=== PATIENT | female | born 1945 | race Caucasian/White ===

== ENCOUNTER 2018-01-07 09:30 | Outpatient (CLI) | payer MEDICARE | END 2018-01-07 09:31 | disposition home or self-care (01) | LOC: BICULT 09:30 | PROVIDERS: ATTEND Internal Medicine Gastroenterology | DX: K74.60 Unspecified cirrhosis of liver (principal); Z90.49 Acquired absence of other specified parts of digestive tract | CPT/HCPCS: 36415; 76705; 80053; 82105 ==

== ENCOUNTER 2018-02-20 12:07 | Emergency (ER) | payer MEDICARE ==
[2018-02-20 12:37] LABS: #Basophils 0.1 thou/uL (0.0-0.2); #Eosinphils 0.4 thou/uL (0.0-0.7); #Monocytes 0.6 thou/uL (0.11-0.59); #Neutrophils 4.8 thou/uL (1.40-6.50); %Basophils 0.9 % (0.0-1.0); %Eosinophils 5.6 % (0.0-10.0); %Lymphocytes 25.5 % (21.0-51.0); %Monocytes 7.2 % (0.0-10.0); %Neutrophils 60.8 % (42.0-75.0); Hemoglobin 13.4 g/dL (12.0-16.0); Mean Corpuscular Hemoglobin 29.2 pg (27.0-31.0); Mean Corpuscular Volume 88.5 fl (81.0-99.0); Mean Platelet Volume 8.3 fL (7.4-10.4); Platelet Count 172 thou/uL (130-400); RBC Distribution Width 12.2 % (11.5-14.5); White Blood Cell (WBC) Count 7.9 thou/uL (4.8-10.8)
[2018-02-20 12:47] LABS: INR-International Normal Ratio 1.1; PTT 30.7 SEC (22.9-36.1); Prothrombin Time 13.8 SEC (12.0-14.7)
[2018-02-20 12:58] LABS: Anion Gap 10 mmol/L (10-20); BUN (Urea Nitrogen) 12 mg/dL (9.8-20.1); Calc. Creatinine Clearance 0 mL/min (70-130); Carbon Dioxide 28 mmol/L (23-31); Chloride 102 mmol/L (98-107); Estimated GFR-MDRD 67; Sodium 136 mmol/L (136-145)
[2018-02-20 12:59] LABS: ALT (SGPT) 38 U/L (8-55); AST (SGOT) 36 U/L (5-34); Albumin 3.8 g/dL (3.4-4.8); Alkaline Phosphatase 110 U/L (40-150); Bilirubin, Total 0.4 mg/dL (0.2-1.2); CK (CPK) 79 U/L (29-168); Calcium 9.2 mg/dL (7.8-10.44); Glucose 266 mg/dL (83-110); Protein, Total 6.8 g/dL (6.0-8.3)
--- NOTE | 2018-02-20 13:02 | RAD ---
CHEST PA AND LATERAL: Date: 02/20/18 HISTORY: 73-year-old female with history of chest pain. FINDINGS: Heart size is within normal limits. Mild increased markings bilaterally and blunting of the costophre krupa angles, slightly worse on the left side, possibly representing minimal pleural effusion. Surgical clips in the right axilla and chest wall. On the lateral view only, there is a small nodular density seen overlying the heart. This could conceivably represent a small pulmonary nodule. No evidence for confluent pneumonia. IMPRESSION: Slight blunting in the costophrenic angles, worse on the left side, possibly small pleural effusion. No significant cardiomegaly or confluent pneumonia or acute edema. Small nodular density seen only on the lateral view overlying the heart, possibly representing a pulmonary nodule. Consider follow-up c hest CT scan for further assessment. POS: STACY
[2018-02-20 13:14] LABS: CKMB 1.3 ng/mL (0-6.6); Troponin I Less than 0.010 ng/mL (< 0.028)
--- NOTE | 2018-02-20 15:27 | CT ---
CT CHEST WITH IV CONTRAST CT ABDOMEN AND PELVIS WITH IV CONTRAST CT THORACIC SPINE NONCONTRAST CT LUMBAR SPINE NONCONTRAST: Date: 02/20/18 HISTORY: Fall. Chest injury. Abdomen injury. Back injury. FINDINGS: Scattered areas of mild scarring are present within the lung parenchyma. No evidence of pneumothorax, pleural fluid, or mediastinal hematoma. Gallbladder is surgically absent. Cysts arise from the kidneys. There is calcification throughout the arterial structures. No free fluid within the abdomen. Fat protrudes through an umbilical hernia nigel t does not contain bowel. Urinary bladder is unremarkable. Diverticula arise from the colon without a djacent inflammation. Degenerative changes are present throughout the thoracolumbar spine. Mild chronic appearing wedging o f several thoracic vertebral bodies is noted. No acute fracture or dislocation are visible. IMPRESSION: No acute traumatic injury is demonstrated. Incidental type findings are as detailed above. POS: STACY
[2018-02-20] MEDS ORDERED: Morphine 4 MG/ML VIAL ONE (15:46)
== END 2018-02-20 17:18 | disposition home or self-care (01) ==
LOC: ERS 12:07
DX: S29.011A Strain of muscle and tendon of front wall of thorax, initial encounter (principal); F41.9 Anxiety disorder, unspecified; F32.9 Major depressive disorder, single episode, unspecified; E11.9 Type 2 diabetes mellitus without complications; I10 Essential (primary) hypertension; Z79.899 Other long term (current) drug therapy; Z79.82 Long term (current) use of aspirin; W01.0XXA Fall on same level from slipping, tripping and stumbling without subsequent striking against object, initial encounter
CPT/HCPCS: 36415; 71046; 71260; 74177; 80053; 82550; 82553; 84484; 85025; 85610; 85730; 93005; 94760; 96374; J2270

== ENCOUNTER 2018-04-20 08:59 | Outpatient (CLI) | payer MEDICARE ==
--- NOTE | 2018-04-20 13:14 | CT ---
CT OF CHEST PERFORMED WITHOUT CONTRAST ENHANCEMENT: HISTORY: The patient has had a history of chest pain. A previous chest x-ray showed possible small left pleur al effusion and some blunting to both costophrenic angles. COMPARISON: CT of chest done 02/20/18 and chest x-ray done the same day. FINDINGS: The lungs are clear of any infiltrative process. No pulmonary nodules or effusions. The bibasilar l marie changes noted on the previous study have essentially completely resolved. There is no significant mediastinal or any obvious hilar adenopathy appreciated on this noncontrast s tudy. No consistent axillary adenopathy. There is some coronary calcification seen. The visualized liver parenchyma shows no focal findings. A parapelvic cyst involving the left kidney is incidentally noted. IMPRESSION: Almost complete resolution of the bibasilar interstitial lung changes. POS: BELEMH
== END 2018-04-20 09:00 | disposition home or self-care (01) ==
LOC: SCSCT 08:59
PROVIDERS: ATTEND Family Medicine
DX: R93.8 Abnormal findings on diagnostic imaging of other specified body structures (principal); J98.4 Other disorders of lung
CPT/HCPCS: 71250

== ENCOUNTER 2019-03-23 10:04 | Outpatient (CLI) | payer MEDICARE ==
--- NOTE | 2019-03-23 10:57 | ULT ---
Abdominal Ultrasound: Multiple grayscale images of right upper quadrant obtained according to protocol. INDICATION: Cirrhosis. Right upper quadrant pain. FINDINGS: Liver: Nodular morphology of the liver, with increased echogenicity. Intrahepatic biliary ductal prom inence is seen Gallbladder: Surgically absent Gallbladder wall: Not applicable. Prince's Sign: Negative Common bile duct is 1.4 cm, which likely represents reservoir effect given absence of gallbladder Ascites: None Spleen: Unremarkable. Pancreas: Obscured from view by bowel content limiting assessment Kidneys: Left renal cyst, 2.3 cm, is present. No hydronephrosis of either kidney Aorta/IVC: No acute process. IMPRESSION: Cirrhotic morphology of liver Left renal cyst Status post cholecystectomy with biliary ductal prominence, likely reservoir effect. This may be conf irmed by obtaining biliary laboratory values, as clinically indicated.
== END 2019-03-23 10:05 | disposition home or self-care (01) ==
LOC: BICULT 10:04
PROVIDERS: ATTEND Internal Medicine Gastroenterology
DX: K74.60 Unspecified cirrhosis of liver (principal); N28.1 Cyst of kidney, acquired; Z98.890 Other specified postprocedural states
CPT/HCPCS: 76700

== ENCOUNTER 2019-10-12 07:54 | Outpatient (CLI) | payer MEDICARE ==
--- NOTE | 2019-10-12 08:52 | ULT ---
Sonogram liver with duplex evaluation HISTORY: Cirrhosis. Chronic liver disease. FINDINGS: The gallbladder is surgically absent. Common duct is 0.8 cm. Liver is heterogeneous with a nodular contour. No focal mass or intrahepatic biliary dilatation. No free fluid. Spleen measures up to 11.4 cm. Good color and spectral Doppler flow within the hepatic and splenic arteries. Portal venous flow is t owards the liver. Hepatic venous flow is towards the IVC. IMPRESSION: Status post cholecystectomy. No evidence of biliary obstruction. Mildly cirrhotic appearance of the liver without findings of portal venous hypertension.
== END 2019-10-12 07:55 | disposition home or self-care (01) ==
LOC: BICULT 07:54
PROVIDERS: ATTEND Physician Assistant Medical
DX: K74.60 Unspecified cirrhosis of liver (principal); E55.9 Vitamin D deficiency, unspecified; Z90.49 Acquired absence of other specified parts of digestive tract
CPT/HCPCS: 76705

== ENCOUNTER 2019-10-24 03:57 | Inpatient (IN) | payer MEDICARE ==
[2019-10-24] MEDS ORDERED: Ondansetron PF 4 MG/2 ML Vial ONE (04:19)
[2019-10-24] MEDS ORDERED: Dicyclomine 20 MG TAB ONE (04:19)
[2019-10-24 04:27] LABS: Hemoglobin 16.1 g/dL (12.0-16.0); Mean Corpuscular HGB CONC 33.1 g/dL (32.0-36.0); Mean Corpuscular Hemoglobin 29.4 pg (27.0-31.0); Mean Corpuscular Volume 88.7 fL (78.0-98.0); Mean Platelet Volume 9.4 fL (7.4-10.4); Platelet Count 199 thou/uL (130-400); RBC Distribution Width 11.8 % (11.5-14.5); Red Blood Cell (RBC) Count 5.48 mill/uL (4.20-5.40); White Blood Cell (WBC) Count 23.5 thou/uL (4.8-10.8)
[2019-10-24 04:41] LABS: ALT (SGPT) 41 U/L (8-55); AST (SGOT) 43 U/L (5-34); Albumin 4.4 g/dL (3.4-4.8); Alkaline Phosphatase 132 U/L (40-110); Anion Gap 16 mmol/L (10-20); BUN (Urea Nitrogen) 14 mg/dL (9.8-20.1); Bilirubin, Total 0.4 mg/dL (0.2-1.2); Calc. Creatinine Clearance 0 mL/min (70-130); Calcium 9.9 mg/dL (7.8-10.44); Carbon Dioxide 23 mmol/L (23-31); Chloride 102 mmol/L (98-107); Estimated GFR-MDRD 60; Globulin 3.5 g/dL (2.4-3.5); Glucose 178 mg/dL (83-110); Lipase 24 U/L (8-78); Potassium 4.3 mmol/L (3.5-5.1); Protein, Total 7.9 g/dL (6.0-8.3); Sodium 137 mmol/L (136-145)
[2019-10-24 04:58] LABS: Band 15 % (5-11); Eosinophils 2 % (0-10); Lymphocytes 9 % (21-51); MDiff Complete? YES; Monocytes 7 % (0-10); Neutrophil 67 % (42-75); Platelet Morphology Comment Appears Adequate
[2019-10-24] MEDS ORDERED: metroNIDAZOLE 500 MG/100 ML BAG ONE (05:14)
[2019-10-24 06:14] LABS: Bilirubin Negative (Negative); Blood, Urine Negative (Negative); Clarity Clear (Clear); Glucose, Urine (Dipstick) Greater than 1000 mg/dL (Negative); Leukocyte Negative Leu/uL (Negative); Nitrite Negative (Negative); Protein, Urine (Dipstick) Negative (Neg-Trace); Urobilinogen Normal mg/dL (Less than 2)
[2019-10-24] MEDS ORDERED: Dicyclomine 10 MG CAP PO PRN (06:59)
[2019-10-24] MEDS ORDERED: Ondansetron ODT 4 MG TAB PO PRN (07:00)
[2019-10-24] MEDS ORDERED: Ondansetron PF 4 MG/2 ML Vial IVP PRN ×2 (07:00→10:44)
[2019-10-24] MEDS ORDERED: Acetaminophen 325 MG TAB PO PRN (07:01)
[2019-10-24 07:13] VITALS: BMI 29.5
[2019-10-24] MEDS ORDERED: metroNIDAZOLE 500 MG in Premix Bag 1 BAG IVPB SCH (09:00)
--- NOTE | 2019-10-24 09:52 | CT ---
PRELIMINARY REPORT/[facility]/EMERGENCY AFTER HOURS PROCEDURE: EXAM: CT Abdomen and Pelvis with Intravenous Contrast CLINICAL HISTORY: Patient presents for evaluation of abdominal pain, Patient presents for evaluation of Patient reporti ng lower abdominal pain with intermittent watery diarrhea for one month. Has seen pcm twice with no d iagonosis. Diarrhea and abd pain worsened last night and has had one episode of vomiting and 3 episod es of large watery diarrhea since then. TECHNIQUE: Axial computed tomography images of the abdomen and pelvis with intravenous contrast. CONTRAST: With; ISOVUE 370,100mL COMPARISON: None provided. FINDINGS: LUNG BASES: No basilar airspace consolidation or pleural effusion. LIVER: Unremarkable. GALLBLADDER AND BILE DUCTS: Gallbladder surgically absent. PANCREAS: Unremarkable. SPLEEN: Unremarkable. ADRENAL GLANDS: Unremarkable. KIDNEYS, URETERS, AND BLADDER: Unremarkable. No hydronephrosis or nephrolithiasis. No ureteral or kris dder calculi. Simple appearing cyst involving the left kidney measuring 2.2 x 2.8 cm. STOMACH AND BOWEL: No obstruction. No wall thickening. No CT evidence acute diverticulitis. Changes of colonic diverticulosis is seen. Mild colitis suspected. APPENDIX: Appendix not visualized. PERITONEUM: No free fluid. No free air. LYMPH NODES: No lymphadenopathy. REPRODUCTIVE: Unremarkable as visualized. VASCULATURE: No aortic aneurysm. BONES: No fracture or suspicious osseous abnormality. Degenerative changes of the lumbar spine is se en. ABDOMINAL WALL AND SOFT TISSUES: Unremarkable. IMPRESSION: Mild colitis. ELECTRONICALLY SIGNED BY: Santos Boyd MD Oct 24, 2019 5:45:41 AM THREAD LASTER This report is intended for review by the ordering physician only, in accordance of law. If you recei ve this report in error, please call [facility] at [phone]. FINAL REPORT EMERGENCY AFTER HOURS CT ABDOMEN AND PELVIS WITH CONTRAST: FINDINGS/IMPRESSION: I agree with the findings and impression given in the preliminary report per [facility] physici an. 1. There is scattered diverticula in the colon. There are questionable stranding changes surrounding some of the diverticula in the pelvis. 2. Left renal cysts.
[2019-10-24] MEDS ORDERED: Dextrose 5% in Water 1,000 ML IV PRN (10:44)
[2019-10-24] MEDS ORDERED: Dextrose 50% Abboject 50 ML SYRINGE SLOW IVP PRN (10:44)
[2019-10-24] MEDS ORDERED: Guaifenesin DM 100-10/5 ML UDCUP PO PRN (10:44)
[2019-10-24] MEDS ORDERED: HumaLOG 300 UNITS/3 ML VIAL SC PRN (10:44)
[2019-10-24] MEDS: Sodium Chloride 0.9% 1,000 ML IV SCH ×2 (12:20→20:48)
--- NOTE | 2019-10-24 12:21 | HP ---
REASON FOR ADMISSION: Colitis, sepsis. HISTORY OF PRESENTING ILLNESS: The patient gives history of having abdominal pain from September 23. This is off and on, colicky pain. This is generalized. Sometimes she gets it on the left side, sometimes on the right side. Sometimes this pain stays in the center. She has also felt nauseous with this abdominal pain. Yesterday, the patient also had 3 episodes of diarrhea. No fever at home. She in fact saw Dr. Rodriguez, her professional organizer on the and had some changes in her diabetic medications. She failed to mention her abdominal pain to Michael likely. Has no complaints of chest pain, palpitation, PND, or orthopnea. She ambulates by herself. PAST MEDICAL AND SURGICAL HISTORY: History of cirrhosis due to nonalcoholic steatohepatitis, history of breast cancer, bilateral with mastectomies; carpal tunnel syndrome with surgery; melanoma removal; hypertension; diabetes mellitus, type 2; left knee replacement; hysterectomy; cataract and bilateral carpal tunnel surgery. CURRENT MEDICATIONS: The patient is on; 1. Jardiance 10 mg daily. 2. Gabapentin 600 mg q.a.m. and 900 mg p.o. q.p.m. 3. Atorvastatin 5 mg p.o. daily. The patient states she cannot tolerate higher dose. 4. Norvasc 5 mg p.o. daily. 5. Pepcid 40 mg p.o. q.p.m. 6. Aspirin 81 mg p.o. daily. ALLERGIES: ALLERGIC TO ERYTHROMYCIN, ZOLPIDEM. PERSONAL HISTORY: Does not abuse alcohol or drugs. No history of smoking. FAMILY HISTORY: Mother at the age of 92 years from natural causes. Father at the age of 49. She had alcoholic cirrhosis and complications. REVIEW OF SYSTEMS: CONSTITUTIONAL: Negative for weight loss or gain, ability to conduct usual activities. SKIN: Negative for rash, itching. EYES: Negative for double vision, pain. ENT/MOUTH: Negative for nose bleeding, neck stiffness, pain, tenderness. CARDIOVASCULAR: Negative for palpitations, dyspnea on exertion, orthopnea. RESPIRATORY: Negative for shortness of breath, wheezing, cough, hemoptysis, fever or night sweats. GASTROINTESTINAL: Negative for poor appetite, abdominal pain, heartburn, nausea, vomiting, constipation, or diarrhea. GENITOURINARY: Negative for urgency, frequency, dysuria, nocturia. MUSCULOSKELETAL: Negative for pain, swelling. NEUROLOGIC/PSYCHIATRIC: Negative for anxiety, depression. ALLERGY/IMMUNOLOGIC: Negative for skin rash, bleeding tendency. CODE STATUS: Code status is full. Power of energy attorney is her . PHYSICAL EXAMINATION: GENERAL: The patient is a 74-year-old female who is currently not in any acute distress. VITAL SIGNS: Blood pressure 140/60, pulse 78 per minute, respiratory rate 16 per minute, temperature 98.9 degrees Fahrenheit, saturating 95% on room air. NECK: Supple. No elevated JVD. HEENT: Eyes; extraocular muscles are intact. Pupils reacting to light. Oral cavity, mucous membranes are moist. No exudates or congestion. CARDIOVASCULAR SYSTEM: S1 and S2 heard, regular rhythm. RESPIRATORY SYSTEM: Air entry 1+ bilateral. No rales or rhonchi. ABDOMEN: Soft, bowel sounds heard. No tenderness, rigidity, or guarding. EXTREMITIES: No peripheral edema or calf tenderness. VASCULAR SYSTEM: Peripheral pulses 1+ bilateral. No ischemic ulcerations or gangrene. CENTRAL NERVOUS SYSTEM: No gross focal deficits noted. The patient is alert, awake, oriented well. PSYCHIATRIC SYSTEM: The patient's mood is euthymic. No hallucinations or delusions. LABORATORY DATA: There is suspicion for colitis. She has diverticulosis with no evidence of diverticulitis at present. This is on the CT abdomen and pelvis with IV contrast done. White count of 23, H and H of 16 and 48, platelet count 199, BUN 14, creatinine 0.9, serum glucose 178, AST 43, ALT 41, alkaline phosphatase 132, albumin is 4.4. Her EKG done shows normal sinus rhythm at 92 beats per minute. There is Q-wave seen in V1, V2. CLINICAL IMPRESSION AND PLAN: The patient will be admitted to medical floor for abdominal pain from last 30 days with nausea, vomiting, and diarrhea. We will obtain stool cultures. She will be empirically placed on Cipro and Flagyl. We will also obtain stool for Cyclospora, ova and cyst as well. The patient's abdominal pain is almost 30 days duration. Her last colonoscopy was somewhere around 2014. She has had some polyps removed, which came back positive for tubular adenoma. She sees Dr. Rodriguez in the outpatient setting for Gastroenterology. We will consult Dr. Luigi Yung who is on-call for Gastroenterology. Normal saline at 100 mL per hour, Protonix 40 mg daily. We will continue aspirin, Lipitor, Norvasc, and Neurontin as before. Job ID: [id number]
[2019-10-24] MEDS ORDERED: Iopamidol 370 76% 100 ML VIAL ONE (12:26)
[2019-10-24] MEDS: HumaLOG 300 UNITS/3 ML VIAL SC PRN ×2 (12:56→17:02)
[2019-10-24] MEDS: Acetaminophen 325 MG TAB PO PRN ×2 (12:56→20:50)
[2019-10-24] MEDS: metroNIDAZOLE 500 MG in Premix Bag 1 BAG IVPB SCH ×2 (13:39→20:54)
[2019-10-24] MEDS: Atorvastatin Calcium 10 MG TAB PO SCH (20:49)
[2019-10-24] MEDS: Aspirin 81 mg Enteric Coated Tablet PO SCH (20:49)
[2019-10-24] MEDS: Amlodipine 5 MG TAB PO SCH (20:49)
[2019-10-24] MEDS: Gabapentin 300 MG CAP PO SCH (20:50)
--- NOTE | 2019-10-25 01:20 | CON ---
DATE OF CONSULTATION: 10/24/2019 CHIEF COMPLAINT: "I feel weak and fatigued." HISTORY OF PRESENT ILLNESS: Ms. More is a 74-year-old woman with a history of cirrhosis secondary to fatty liver disease and is followed by Dr. Rodriguez as an outpatient, who complains of a 1-month history of severe fatigue and weakness. She has had some vague abdominal pain to go along with this with aching in the epigastric region to sometimes the left lower, sometimes right lower, and sometimes right upper quadrant. She does get some abdominal pain on most days that lasts for minutes to hours. She states that over this last month, she has had three episodes of diarrhea that went on for a day or two at a time. Last night, she developed an episode of nausea, vomiting, and diarrhea. She has not had persistent nausea and vomiting prior to this. Today, she has had no nausea or vomiting, is asking for solid food. She has felt weak and states that her blood sugars have been running high compared to previous levels. She feels bad in general. PAST MEDICAL HISTORY: Cirrhosis, hypertension, and diabetes mellitus. PAST SURGICAL HISTORY: Bilateral mastectomy for breast cancer. She has had a melanoma resection, carpal tunnel release, left knee replacement, and hysterectomy. FAMILY HISTORY: Negative for GI malignancy or liver disease. SOCIAL HISTORY: No alcohol, tobacco, or drugs. ALLERGIES: ERYTHROMYCIN, AMBIEN, AND POSSIBLY MACROLIDES. MEDICATIONS: Prior to admission; 1. Aspirin. 2. Amlodipine. 3. Caltrate. 4. Carbidopa and levodopa. 5. Famotidine. 6. Gabapentin. 7. Glimepiride. The glimepiride was actually changed to Jardiance a couple of weeks ago. REVIEW OF SYSTEMS: Negative x10 systems reviewed, except as stated in the history of present illness. PHYSICAL EXAMINATION: VITAL SIGNS: Temperature 98.5, pulse 62, and blood pressure 125/72. GENERAL: She is in no acute distress. Alert and oriented x3. HEENT: Eyes have no scleral icterus. Oropharynx is clear without lesions. No cervical or supraclavicular lymphadenopathy. No asterixis. LUNGS: Clear to auscultation bilaterally. HEART: Regular rate and rhythm without murmur. ABDOMEN: Soft. Really, she is nontender now. There is no guarding. Bowel sounds are present. EXTREMITIES: No lower extremity edema. LABORATORY DATA: White blood cell count 23.5, hemoglobin 16.1, and platelets 199. Bilirubin 0.4, AST 43, ALT 41, alk phos 132, albumin 4.4, creatinine 0.92, and lipase 24. Her hemoglobin was 14.9 back in August. She had an alpha fetoprotein that was normal in August. Hemoglobin A1c was elevated at 9.2 in August. IMPRESSION: 1. Diarrhea, nausea, and vomiting. This really was more of an acute episode last night and is now resolved. She did have a couple of episodes of diarrhea over the last month, but this has not really been a chronic or persistent problem. Nausea and vomiting have not been an issue prior to the last night either. 2. Dehydration. She presented with hemoconcentration with an elevated hemoglobin. 3. Abnormal CT scan showing possible stranding around the segment of the sigmoid colon and an area of diverticulosis. She had EGD and colonoscopy most recently in February of 2017. She had a small adenoma removed from the ascending colon. The upper endoscopy was unremarkable. 4. Generalized weakness and fatigue. Really this seems to be the primary complaint. Her blood sugar has been running high recently, which could be related to that. Her hemoglobin A1c was elevated back in August and her diabetes medicines were changed in mid September. 5. Epigastric pain. She has had some more focal epigastric pain today. We will cover her with a proton pump inhibitor. 6. Cirrhosis of the liver, likely secondary to fatty liver disease. Her liver function has been well compensated up to this point. RECOMMENDATIONS: 1. IV fluids. 2. I think it is reasonable to give a course of ciprofloxacin and metronidazole with a high white count and generalized abdominal pain and possible inflammatory changes around diverticular segment in the sigmoid colon. 3. Proton pump inhibitor. 4. If the diarrhea starts back again, then obtain stool studies. Job ID: [id number]
[2019-10-25 05:48] LABS: #Eosinphils 0.4 thou/uL (0.0-0.7); #Lymphocytes 2.1 thou/uL (1.20-3.40); #Monocytes 0.7 thou/uL (0.11-0.59); #Neutrophils 3.8 thou/uL (1.40-6.50); %Basophils 0.6 % (0.0-1.0); %Eosinophils 5.4 % (0.0-10.0); %Lymphocytes 30.1 % (21.0-51.0); %Monocytes 9.9 % (0.0-10.0); Hemoglobin 13.1 g/dL (12.0-16.0); Mean Corpuscular HGB CONC 32.2 g/dL (32.0-36.0); Mean Corpuscular Hemoglobin 29.2 pg (27.0-31.0); Mean Corpuscular Volume 90.6 fL (78.0-98.0); Mean Platelet Volume 9.7 fL (7.4-10.4); Platelet Count 155 thou/uL (130-400); Red Blood Cell (RBC) Count 4.48 mill/uL (4.20-5.40); White Blood Cell (WBC) Count 7.1 thou/uL (4.8-10.8)
[2019-10-25] MEDS: metroNIDAZOLE 500 MG in Premix Bag 1 BAG IVPB SCH ×3 (05:48→21:02)
[2019-10-25] MEDS: Sodium Chloride 0.9% 1,000 ML IV SCH (05:48)
[2019-10-25 06:24] LABS: Anion Gap 12 mmol/L (10-20); BUN (Urea Nitrogen) 10 mg/dL (9.8-20.1); Calc. Creatinine Clearance 83 mL/min (70-130); Calcium 8.4 mg/dL (7.8-10.44); Carbon Dioxide 23 mmol/L (23-31); Chloride 108 mmol/L (98-107); Estimated GFR-MDRD 79; Glucose 138 mg/dL (83-110); Sodium 139 mmol/L (136-145)
[2019-10-25] MEDS: Gabapentin 300 MG CAP PO SCH ×2 (08:30→20:30)
[2019-10-25] MEDS: Multivitamin W/ Minerals 1 TAB PO SCH (08:30)
[2019-10-25] MEDS: Enoxaparin Sodium 40 MG/0.4 ML SYRINGE SC SCH (08:30)
[2019-10-25] MEDS ORDERED: IRON PO SCH (09:00)
[2019-10-25] MEDS ORDERED: FOLIC ACID PO SCH (09:00)
[2019-10-25] MEDS ORDERED: [UNRECOGNIZED DRUG - OTHER] PO SCH (09:00)
[2019-10-25] MEDS ORDERED: MULTIVIT MIN PO SCH (09:00)
--- NOTE | 2019-10-25 11:12 | PDOC.HOSPP ---
- Subjective Encounter Date: 10/25/19 Encounter Time: 10:30 Subjective: Patient seen and examined. No new complaints. No overnight events - Objective Vital Signs & Weight: Vital Signs (12 hours) Temp Pulse Resp BP Pulse Ox 10/25/19 07:54 98.1 F 62 18 117/65 95 10/25/19 04:57 98.2 F 63 20 97/61 94 L 10/25/19 00:00 98.3 F 61 20 114/66 95 Weight Weight 172 lb 7 oz I&O: 10/24/19 10/25/19 10/26/19 06:59 06:59 06:59 Intake Total 2054 Output Total 700 Balance 1354 Result Diagrams: 10/25/19 05:39 10/25/19 05:39 Additional Labs: Accuchecks 10/25/19 10/24/19 10/24/19 05:03 20:34 16:33 POC Glucose 129 H 183 H 181 H 10/24/19 12:19 POC Glucose 182 H Radiology Reviewed by me: Yes Hospitalist ROS - Review of Systems Eyes: denies: pain, vision change, conjunctivae inflammation, eyelid inflammation, redness, other ENT: denies: ear pain, ear discharge, nose pain, nose discharge, nose congestion , mouth pain, mouth swelling, throat pain, throat swelling, other Respiratory: denies: cough, dry, shortness of breath, hemoptysis, SOB with excertion, pleuritic pain, sputum, wheezing, other Cardiovascular: denies: chest pain, palpitations, orthopnea, paroxysmal noc. dyspnea, edema, light headedness, other Gastrointestinal: reports: nausea, abdominal pain, diarrhea. denies: vomiting, constipation, melena, hematochezia, other Genitourinary: denies: dysuria, frequency, incontinence, hematuria, retention, other Musculoskeletal: denies: neck pain, shoulder pain, arm pain, back pain, hand pain, leg pain, foot pain, other - Medication Medications: Active Medications Generic Name Dose Route Start Last Admin Trade Name Freq PRN Reason Stop Dose Admin Acetaminophen 650 mg 10/24/19 10:44 10/24/19 20:50 Tylenol PO 650 mg Q4H PRN Administration Headache/Fever/Mild Pain (1-3) Amlodipine Besylate 5 mg 10/24/19 21:00 10/24/19 20:49 Norvasc PO 5 mg HS AMOS Administration Aspirin 81 mg 10/24/19 21:00 10/24/19 20:49 Ecotrin PO 81 mg HS AMOS Administration Atorvastatin Calcium 10 mg 10/24/19 21:00 10/24/19 20:49 Lipitor PO 10 mg HS AMOS Administration Enoxaparin Sodium 40 mg 10/25/19 09:00 10/25/19 08:30 Lovenox SC Not Given 0900 AMOS Gabapentin 600 mg 10/25/19 09:00 10/25/19 08:30 Neurontin PO 600 mg QAM AMOS Administration Gabapentin 900 mg 10/24/19 21:00 10/24/19 20:50 Neurontin PO 900 mg HS AMOS Administration Sodium Chloride 1,000 mls @ 100 mls/hr 10/24/19 10:44 10/25/19 05:48 Normal Saline 0.9% IV 10/25/19 16:43 1,000 mls .Q10H AMOS Administration Ciprofloxacin/Dextrose 400 mg/ 200 mls @ 200 mls/hr 10/24/19 21:00 10/25/19 08:29 Device IVPB 200 mls Q12HR AMOS Administration Metronidazole 500 mg/ Device 100 mls @ 100 mls/hr 10/24/19 14:00 10/25/19 05: 48 IVPB 100 mls Q8HR AMOS Administration Insulin Human Lispro 0 units 10/24/19 10:44 10/24/19 17:02 Humalog SC 2 unit .MODERATE SLIDING SC PRN Administration Moderate Correctional Scale Iron/Minerals/Multivitamins 1 tab 10/25/19 09:00 10/25/19 08:30 Theragran M PO 1 tab DAILY AMOS Administration Ondansetron HCl 4 mg 10/24/19 10:44 10/25/19 00:19 Zofran IVP 4 mg Q6H PRN Administration Nausea/Vomiting Pantoprazole Sodium 40 mg 10/25/19 09:00 10/25/19 08:31 Protonix PO 40 mg DAILY AMOS Administration Sodium Chloride 10 ml 10/24/19 21:00 10/25/19 08:31 Flush - Normal Saline IVF Not Given Q12HR AMOS - Exam General Appearance: NAD, awake alert Eye: PERRL, anicteric sclera ENT: normocephalic atraumatic, no oropharyngeal lesions Neck: supple, symmetric, no JVD, no thyromegaly Heart: RRR, no murmur, no gallops, no rubs Respiratory: CTAB, no wheezes, no rales, no ronchi Gastrointestinal: soft, non-distended, normal bowel sounds, no palpable masses, no hepatomegaly Gastrointestinal - other findings: mild discomfort on deep palapation Extremities: no cyanosis, no clubbing, no edema Skin: normal turgor, no lesions Neurological: no focal deficits Musculoskeletal: normal tone, normal strength Psychiatric: normal affect, normal behavior Hosp A/P (1) Colitis presumed infectious Code(s): K52.9 - NONINFECTIVE GASTROENTERITIS AND COLITIS, UNSPECIFIED Status : Acute (2) Cirrhosis, nonalcoholic Status: Chronic (3) Diabetes type 2, controlled Code(s): E11.9 - TYPE 2 DIABETES MELLITUS WITHOUT COMPLICATIONS Status: Chronic Qualifiers: Diabetes mellitus care home insulin use: with termite inspector use (4) Hypertension Code(s): I10 - ESSENTIAL (PRIMARY) HYPERTENSION Status: Chronic Qualifiers: Hypertension type: essential hypertension Qualified Code(s): I10 - Essential (primary) hypertension (5) Dyslipidemia Code(s): E78.5 - HYPERLIPIDEMIA, UNSPECIFIED Status: Chronic - Plan old records reviewed/req, continue antibiotics 10/25/19 continue cipro and flagyl pt has clinical improvement GI following monitor for diet tolerance today if she does OK and no more diarrhea, will consider discharge in next 24 hours medication reviewed and continue supportive care
[2019-10-25] MEDS: HumaLOG 300 UNITS/3 ML VIAL SC PRN (12:00)
--- NOTE | 2019-10-25 18:15 | PRG ---
DATE OF SERVICE: 10/25/2019 SUBJECTIVE: Ms. More is feeling better today. She is eating. Her abdomen is still a bit sore, but not having discomfort and she has had no vomiting or diarrhea. OBJECTIVE: VITAL SIGNS: Temperature is 98, pulse 62, blood pressure 117/75. ABDOMEN: Soft, nontender. There is no rebound. There is no guarding. LABORATORY DATA: Blood cultures have been no growth to date. Sodium 139, potassium 4, BUN and creatinine are 10 and 0.72. LABORATORY DATA: White count is down to 7.1 from 23,000; hemoglobin is 13, down from 16; platelet count is 155. ASSESSMENT: 1. Mild cirrhosis from fatty liver disease, compensated. 2. Diverticulitis on admission, improving with antibiotics. We will continue to follow along with you. Job ID: [id number]
[2019-10-25] MEDS: Atorvastatin Calcium 10 MG TAB PO SCH (20:29)
[2019-10-25] MEDS: Aspirin 81 mg Enteric Coated Tablet PO SCH (20:29)
[2019-10-25] MEDS: Amlodipine 5 MG TAB PO SCH (20:29)
[2019-10-25] MEDS: Acetaminophen 325 MG TAB PO PRN (22:31)
[2019-10-26] MEDS: metroNIDAZOLE 500 MG in Premix Bag 1 BAG IVPB SCH (05:38)
[2019-10-26 06:19] LABS: #Basophils 0.1 thou/uL (0.0-0.2); #Eosinphils 0.5 thou/uL (0.0-0.7); #Lymphocytes 2.3 thou/uL (1.20-3.40); #Monocytes 0.8 thou/uL (0.11-0.59); #Neutrophils 4.8 thou/uL (1.40-6.50); %Eosinophils 5.9 % (0.0-10.0); %Lymphocytes 27.2 % (21.0-51.0); %Monocytes 9.7 % (0.0-10.0); %Neutrophils 56.2 % (42.0-75.0); Hemoglobin 13.9 g/dL (12.0-16.0); Mean Corpuscular HGB CONC 32.7 g/dL (32.0-36.0); Mean Corpuscular Hemoglobin 29.3 pg (27.0-31.0); Mean Corpuscular Volume 89.6 fL (78.0-98.0); Mean Platelet Volume 9.6 fL (7.4-10.4); Platelet Count 159 thou/uL (130-400); RBC Distribution Width 11.7 % (11.5-14.5); Red Blood Cell (RBC) Count 4.74 mill/uL (4.20-5.40); White Blood Cell (WBC) Count 8.5 thou/uL (4.8-10.8)
[2019-10-26 07:27] LABS: Anion Gap 12 mmol/L (10-20); BUN (Urea Nitrogen) 12 mg/dL (9.8-20.1); Calc. Creatinine Clearance 74 mL/min (70-130); Carbon Dioxide 26 mmol/L (23-31); Chloride 107 mmol/L (98-107); Estimated GFR-MDRD 69; Glucose 139 mg/dL (83-110); Potassium 3.9 mmol/L (3.5-5.1); Sodium 141 mmol/L (136-145)
[2019-10-26] MEDS: Multivitamin W/ Minerals 1 TAB PO SCH (08:27)
[2019-10-26] MEDS: Enoxaparin Sodium 40 MG/0.4 ML SYRINGE SC SCH (08:28)
[2019-10-26] MEDS: Gabapentin 300 MG CAP PO SCH (08:28)
[2019-10-26 10:35] VITALS: TEMP 97.6
[2019-10-26 10:39] VITALS: BP 129/57
--- NOTE | 2019-10-26 10:54 | PDOC.HOSPP ---
- Subjective Encounter Date: 10/26/19 Encounter Time: 09:40 Subjective: Patient seen and examined. No new complaints. No overnight events - Objective Vital Signs & Weight: Vital Signs (12 hours) Temp Pulse Resp BP BP Pulse Ox 10/26/19 10:39 97.6 F 67 18 129/57 L 96 10/26/19 07:34 97.6 F 67 18 129/87 99 10/26/19 05:35 98.2 F 69 16 107/64 93 L Weight Weight 172 lb 7 oz I&O: 10/25/19 10/26/19 10/27/19 06:59 06:59 06:59 Intake Total 2054 2825 Output Total 700 Balance 1354 2825 Result Diagrams: 10/26/19 05:47 10/26/19 05:47 Additional Labs: Accuchecks 10/26/19 10/25/19 10/25/19 05:33 22:33 21:01 POC Glucose 132 H 163 H 179 H 10/25/19 10/25/19 16:56 11:11 POC Glucose 103 210 H Hospitalist ROS - Review of Systems ENT: denies: ear pain, ear discharge, nose pain, nose discharge, nose congestion , mouth pain, mouth swelling, throat pain, throat swelling, other Respiratory: denies: cough, dry, shortness of breath, hemoptysis, SOB with excertion, pleuritic pain, sputum, wheezing, other Cardiovascular: denies: chest pain, palpitations, orthopnea, paroxysmal noc. dyspnea, edema, light headedness, other Gastrointestinal: denies: nausea, vomiting, abdominal pain, diarrhea, constipation, melena, hematochezia, other Genitourinary: denies: dysuria, frequency, incontinence, hematuria, retention, other Musculoskeletal: denies: neck pain, shoulder pain, arm pain, back pain, hand pain, leg pain, foot pain, other - Medication Medications: Active Medications Generic Name Dose Route Start Last Admin Trade Name Freq PRN Reason Stop Dose Admin Acetaminophen 650 mg 10/24/19 10:44 10/25/19 22:31 Tylenol PO 650 mg Q4H PRN Administration Headache/Fever/Mild Pain (1-3) Amlodipine Besylate 5 mg 10/24/19 21:00 10/25/19 20:29 Norvasc PO 5 mg HS AMOS Administration Aspirin 81 mg 10/24/19 21:00 10/25/19 20:29 Ecotrin PO 81 mg HS AMOS Administration Atorvastatin Calcium 10 mg 10/24/19 21:00 10/25/19 20:29 Lipitor PO 10 mg HS AMOS Administration Enoxaparin Sodium 40 mg 10/25/19 09:00 10/26/19 08:28 Lovenox SC Not Given 0900 AMOS Gabapentin 600 mg 10/25/19 09:00 10/26/19 08:28 Neurontin PO 600 mg QAM AMOS Administration Gabapentin 900 mg 10/24/19 21:00 10/25/19 20:30 Neurontin PO 900 mg HS AMOS Administration Ciprofloxacin/Dextrose 400 mg/ 200 mls @ 200 mls/hr 10/24/19 21:00 10/26/19 08:28 Device IVPB 200 mls Q12HR AMOS Administration Metronidazole 500 mg/ Device 100 mls @ 100 mls/hr 10/24/19 14:00 10/26/19 05: 38 IVPB 100 mls Q8HR AMOS Administration Insulin Human Lispro 0 units 10/24/19 10:44 10/25/19 12:00 Humalog SC 4 unit .MODERATE SLIDING SC PRN Administration Moderate Correctional Scale Iron/Minerals/Multivitamins 1 tab 10/25/19 09:00 10/26/19 08:27 Theragran M PO 1 tab DAILY AMOS Administration Ondansetron HCl 4 mg 10/24/19 10:44 10/25/19 00:19 Zofran IVP 4 mg Q6H PRN Administration Nausea/Vomiting Pantoprazole Sodium 40 mg 10/25/19 09:00 10/26/19 08:27 Protonix PO 40 mg DAILY AMOS Administration Sodium Chloride 10 ml 10/24/19 21:00 10/26/19 08:28 Flush - Normal Saline IVF Not Given Q12HR AMOS - Exam General Appearance: NAD, awake alert Eye: PERRL, anicteric sclera ENT: normocephalic atraumatic, no oropharyngeal lesions Neck: supple, symmetric, no JVD Heart: RRR, no murmur, no gallops Respiratory: CTAB, no wheezes, no rales, no ronchi Gastrointestinal: soft, non-tender, non-distended, normal bowel sounds Extremities: no edema Skin: normal turgor, no lesions Neurological: no focal deficits Musculoskeletal: normal tone, normal strength Psychiatric: normal affect, normal behavior Hosp A/P (1) Colitis presumed infectious Code(s): K52.9 - NONINFECTIVE GASTROENTERITIS AND COLITIS, UNSPECIFIED Status : Acute (2) Cirrhosis, nonalcoholic Status: Chronic (3) Diabetes type 2, controlled Code(s): E11.9 - TYPE 2 DIABETES MELLITUS WITHOUT COMPLICATIONS Status: Chronic Qualifiers: Diabetes mellitus custodial insulin use: with vermin exterminator use (4) Hypertension Code(s): I10 - ESSENTIAL (PRIMARY) HYPERTENSION Status: Chronic Qualifiers: Hypertension type: essential hypertension Qualified Code(s): I10 - Essential (primary) hypertension (5) Dyslipidemia Code(s): E78.5 - HYPERLIPIDEMIA, UNSPECIFIED Status: Chronic - Plan old records reviewed/req, continue antibiotics 10/25/19 continue cipro and flagyl pt has clinical improvement GI following monitor for diet tolerance today if she does OK and no more diarrhea, will consider discharge in next 24 hours medication reviewed and continue supportive care 10/26/19 change to po cipro and flagyl for 12 days ok to discharge medication reviewed as above and continue to provide supportive care
--- NOTE | 2019-10-26 12:54 | DIS ---
DATE OF ADMISSION: 10/24/2019 DATE OF DISCHARGE: 10/26/2019 PRIMARY CARE PHYSICIAN: Fatimah Josue. DISCHARGE DISPOSITION: Home. PRIMARY DISCHARGE DIAGNOSIS: Acute diverticulitis. SECONDARY DISCHARGE DIAGNOSES: Nonalcoholic cirrhosis, diabetes type 2, hypertension, dyslipidemia. PRIMARY PROCEDURE/OPERATION: None. RADIOLOGIST INVESTIGATION: Abdomen and pelvis CT scan. SIGNIFICANT LABORATORY DATA: WBC 8.5, hemoglobin 13.9, platelet 159. Sodium 141, potassium 3.9, BUN 12, creatinine 0.81, calcium 9.0. Urinalysis normal. Blood culture negative. DISCHARGE MEDICATIONS: 1. Ciprofloxacin 500 mg p.o. twice daily for 12 days. 2. Flagyl 500 mg t.i.d. for 12 days. 3. Multivitamin one tablet p.o. daily. 4. Gabapentin 900 mg at bedtime and 600 mg in the morning. 5. Pepcid 40 mg p.o. at bedtime. 6. Empagliflozin 10 mg daily. 7. Lipitor 10 mg p.o. at bedtime. 8. Aspirin 81 mg daily. 9. Norvasc 5 mg p.o. daily. CONTRAINDICATION: None. CODE STATUS: Full code. INPATIENT FOREIGN LANGUAGE TEACHER: Gastroenterology Team was following while in hospital. TEST RESULTS PENDING ON DISCHARGE: None. ALLERGIES: ERYTHROMYCIN AND AMBIEN. DISCHARGE PLAN: Posthospital, the patient will follow up with primary care physician in 1 week. The patient is instructed to make appointment with Dr. Rodriguez as instructed. HOSPITAL COURSE: A 74-year-old female with above-mentioned medical problem, who was admitted by Dr. Tavares. Please see his H and P for further details. The patient was admitted for nausea, vomiting, abdominal pain, and diarrhea. The patient was diagnosed with colitis versus diverticulitis. The patient was treated with IV Cipro and Flagyl and the patient's condition significantly improved. The patient did not have any further diarrhea and that is why we were not able to send any stool for infection workup. Gastroenterology recommended to finish complete course of antibiotic therapy. At this point, the patient's pain is controlled. She is afebrile, tolerating p.o. well, ambulatory. We are changing to Cipro and Flagyl for another 12 days and the patient is instructed to make appointment with Gastroenterology after discharge. The patient will continue all her previous medication. The patient is seen and examined at bedside today. Please see my progress note from today for further detail. Job ID: [id number]
== END 2019-10-26 12:10 | disposition home or self-care (01) | DRG 392 ==
LOC: ERS 03:57 → T4-B 06:53
PROVIDERS: ADMIT Internal Medicine; ATTEND Internal Medicine
DX: K57.92 Diverticulitis of intestine, part unspecified, without perforation or abscess without bleeding (principal); K74.60 Unspecified cirrhosis of liver; E11.9 Type 2 diabetes mellitus without complications; I10 Essential (primary) hypertension; E78.5 Hyperlipidemia, unspecified; Z96.652 Presence of left artificial knee joint; F32.9 Major depressive disorder, single episode, unspecified; F41.9 Anxiety disorder, unspecified; C50.919 Malignant neoplasm of unspecified site of unspecified female breast; E86.0 Dehydration; C43.9 Malignant melanoma of skin, unspecified; Z98.42 Cataract extraction status, left eye; Z90.13 Acquired absence of bilateral breasts and nipples; Z98.41 Cataract extraction status, right eye
CPT/HCPCS: 36415; 36416; 74177; 80048; 80053; 81003; 83690; 84443; 85025; 87040; 93005; 96365; 96368; 96375; J0744; J2405; Q9967

== ENCOUNTER 2020-03-16 10:12 | Outpatient (CLI) | payer MEDICARE ==
--- NOTE | 2020-03-16 14:01 | BD ---
Exam: DEXA Bone Density 03/16/20 HISTORY: Asymptomatic menopausal state. COMPARISON: None. FINDINGS: Lumbar Spine: BMD (g/cm2) T-SCORE Z-SCORE L1 0.867 -1.2 1.0 L2 0.997 -0.3 2.2 L3 0.942 -0.3 1.3 L4 1.191 1.2 3.8 L1-L4 1.003 -0.4 2.1 Left Femoral Neck: 0.667 -1.6 0.5 Total Femur: 1.007 0.5 2.4 WHO classification: Osteopenia. Ten year fracture risk: Major osteoporotic fracture: 12%. Hip Fracture: 2.6%. Impression: Osteopenia with fracture risk as above. POS: [facility]
== END 2020-03-16 10:13 | disposition home or self-care (01) ==
LOC: BICMAMMO 10:12
PROVIDERS: ATTEND Physician Assistant
DX: Z13.820 Encounter for screening for osteoporosis (principal); M85.89 Other specified disorders of bone density and structure, multiple sites; Z78.0 Asymptomatic menopausal state
CPT/HCPCS: 77080

== ENCOUNTER 2020-05-29 00:20 | Emergency (ER) | payer MEDICARE, OTHER ==
--- NOTE | 2020-05-29 07:42 | RAD ---
EXAM: Single view of the chest HISTORY: Sore throat with cough COMPARISON: 02/20/2018 FINDINGS: Single view of the chest shows a normal sized cardiomediastinal silhouette. There is no sanaz dence of consolidation, mass, or pleural effusion. The bones are unremarkable. IMPRESSION: No evidence of acute cardiopulmonary disease
[2020-05-29 11:50] LABS: SARS-CoV-2 MS2 Positive; SARS-CoV-2 N Gene Negative; SARS-CoV-2 S Gene Negative; SARS-CoV-2 orf1ab Negative
== END 2020-05-29 02:23 | disposition home or self-care (01) ==
LOC: ERS 00:20
DX: J02.9 Acute pharyngitis, unspecified (principal); Z20.828 Contact with and (suspected) exposure to other viral communicable diseases; I10 Essential (primary) hypertension; E11.9 Type 2 diabetes mellitus without complications; Z79.899 Other long term (current) drug therapy; Z79.82 Long term (current) use of aspirin
CPT/HCPCS: 71045; 87081; 87430; 99283; U0003; 87635

== ENCOUNTER 2020-09-25 08:56 | Outpatient (CLI) | payer MEDICARE ==
--- NOTE | 2020-09-25 09:39 | ULT ---
US Hepatic Doppler: 09/25/2020 9:02 AM CLINICAL HISTORY: Cirrhosis. STUDY: Right upper quadrant ultrasound of liver. TECHNIQUE: Multiplanar grayscale and color Doppler images were obtained in a ultrasound of the right upper quadrant of the abdomen. Spectral analysis of the Doppler waveforms of the hepatic and splenic vessels were performed. COMPARISON: 10/12/[address] abdomen/pelvis 10/24/2019 FINDINGS: Liver: Size: Normal. Echogenicity: Increased Contour: Nodular consistent with cirrhosis. Mass: None. Bile ducts: No intrahepatic or extrahepatic biliary dilatation. Common bile duct measures 13 mm. Gallbladder: Removed Pancreas: Head and body appear normal; tail obscured by bowel gas. Hepatic veins: Normal waveforms. Normal directional flow. Portable veins: Normal waveforms. Normal directional flow. Hepatic arteries: Normal waveforms. Normal directional flow. Splenic vein: Normal waveforms. Normal directional flow. Splenic artery: Normal waveforms. Normal directional flow. The spleen is normal in echogenicity without focal lesions and measures 10.9cm in length. IMPRESSION: 1. Status post cholecystectomy. Enlargement of the common bile duct may be a reservoir effect from pr ior cholecystectomy. Correlate with LFTs. 2. Cirrhotic liver
== END 2020-09-25 08:57 | disposition home or self-care (01) ==
LOC: BICULT 08:56
PROVIDERS: ATTEND Internal Medicine Gastroenterology
DX: K74.60 Unspecified cirrhosis of liver (principal); K83.8 Other specified diseases of biliary tract; Z90.49 Acquired absence of other specified parts of digestive tract
CPT/HCPCS: 76705

== ENCOUNTER 2021-05-02 08:08 | Outpatient (CLI) | payer MEDICARE | END 2021-05-02 08:09 | disposition home or self-care (01) | LOC: BICULT 08:08 | PROVIDERS: ATTEND Physician Assistant Medical | DX: K74.60 Unspecified cirrhosis of liver (principal); K76.0 Fatty (change of) liver, not elsewhere classified; Z90.49 Acquired absence of other specified parts of digestive tract | CPT/HCPCS: 76705 ==

== ENCOUNTER 2021-11-20 12:42 | Outpatient (CLI) | payer MEDICARE | END 2021-11-20 12:43 | disposition home or self-care (01) | LOC: BICCT 12:42 | PROVIDERS: ATTEND Physician Assistant | DX: R10.9 Unspecified abdominal pain (principal); N28.1 Cyst of kidney, acquired; K57.30 Diverticulosis of large intestine without perforation or abscess without bleeding; K42.9 Umbilical hernia without obstruction or gangrene; Z90.49 Acquired absence of other specified parts of digestive tract; Z90.710 Acquired absence of both cervix and uterus | CPT/HCPCS: 74176 ==

== ENCOUNTER 2021-12-06 14:37 | Outpatient (CLI) | payer MEDICARE | END 2021-12-06 14:38 | disposition home or self-care (01) | LOC: BICULT 14:37 | PROVIDERS: ATTEND Internal Medicine Cardiovascular Disease | DX: E04.2 Nontoxic multinodular goiter (principal) | CPT/HCPCS: 76536 ==

== ENCOUNTER 2022-04-05 08:03 | Outpatient (CLI) | payer MEDICARE | END 2022-04-05 08:04 | disposition home or self-care (01) | LOC: BICMAMMO 08:03 | PROVIDERS: ATTEND Physician Assistant | DX: Z13.820 Encounter for screening for osteoporosis (principal); Z78.0 Asymptomatic menopausal state; M85.852 Other specified disorders of bone density and structure, left thigh; M85.851 Other specified disorders of bone density and structure, right thigh | CPT/HCPCS: 77080 ==

== ENCOUNTER 2024-01-02 09:32 | Outpatient (CLI) | payer MEDICARE | END 2024-01-02 09:33 | disposition home or self-care (01) | LOC: BICULT 09:32 | PROVIDERS: ATTEND Physician Assistant Medical | DX: K74.60 Unspecified cirrhosis of liver (principal); Z53.20 Procedure and treatment not carried out because of patient's decision for unspecified reasons; Z86.010 Personal history of colon polyps | CPT/HCPCS: 76705 ==

== ENCOUNTER 2024-01-06 13:48 | Observation (INO) | payer MEDICARE ==
[2024-01-06 15:18] LABS: #Basophils 0.1 thou/uL (0.0-0.2); #Eosinphils 0.4 thou/uL (0.0-0.7); #Monocytes 0.6 thou/uL (0.11-0.59); #Neutrophils 4.5 thou/uL (1.40-6.50); %Basophils 0.7 % (0.0-1.0); %Eosinophils 4.8 % (0.0-10.0); %Lymphocytes 25.6 % (21.0-51.0); %Monocytes 8.4 % (0.0-10.0); %Neutrophils 60.2 % (42.0-75.0); Hematocrit 42.6 % (36.0-47.0); Hemoglobin 14.1 g/dL (12.0-16.0); Mean Corpuscular HGB CONC 33.1 g/dL (32.0-36.0); Mean Corpuscular Hemoglobin 29.3 pg (27.0-31.0); Mean Corpuscular Volume 88.6 fl (78.0-98.0); Mean Platelet Volume 11.7 fL (7.4-10.4); Platelet Count 165 10x3/uL (130-400); RBC Distribution Width 13.4 % (11.5-14.5); Red Blood Cell (RBC) Count 4.81 mill/uL (4.20-5.40); White Blood Cell (WBC) Count 7.5 10x3/uL (4.8-10.8)
[2024-01-06 15:28] LABS: ALT (SGPT) 20 U/L (8-55); AST (SGOT) 25 U/L (5-34); Albumin 4.1 g/dL (3.4-4.8); Alkaline Phosphatase 89 U/L (40-110); Anion Gap 13 mmol/L (10-20); BUN (Urea Nitrogen) 11 mg/dL (9.8-20.1); Bilirubin, Total 0.4 mg/dL (0.2-1.2); Calc. Creatinine Clearance 0 mL/min (70-130); Calcium 9.8 mg/dL (7.8-10.44); Carbon Dioxide 25 mmol/L (23-31); Chloride 103 mmol/L (98-107); Estimated GFR 81; Globulin 3.2 g/dL (2.4-3.5); Glucose 96 mg/dL (83-110); Lipase 10 U/L (8-78); Protein, Total 7.3 g/dL (5.8-8.1); Sodium 137 mmol/L (136-145)
[2024-01-06 15:32] LABS: Troponin I Less than 0.010 ng/mL (< 0.028)
[2024-01-06] MEDS ORDERED: Aspirin Chewable 81 MG TAB ONE (18:01)
[2024-01-06] MEDS ORDERED: Nitroglycerin 2% Ointment 1 INCH/1 GM Packet ONE (18:01)
[2024-01-06 20:06] LABS: Troponin I Less than 0.010 ng/mL (< 0.028)
[2024-01-06] MEDS ORDERED: Morphine 4 MG/ML VIAL ONE (20:22)
[2024-01-06] MEDS ORDERED: Acetaminophen 650 MG Suppository PR PRN (20:25)
[2024-01-06] MEDS ORDERED: Nitroglycerin 0.4 MG TAB (25 Tab Bottle) SL PRN (20:25)
[2024-01-06] MEDS ORDERED: Acetaminophen 325 MG TAB PO PRN (20:25)
[2024-01-06] MEDS ORDERED: Ondansetron PF 4 MG/2 ML Vial IVP PRN (20:25)
[2024-01-06] MEDS ORDERED: Ondansetron ODT 4 MG TAB PO PRN (20:25)
[2024-01-06] MEDS ORDERED: Morphine 4 MG/ML VIAL SLOW IVP PRN (20:29)
[2024-01-06 21:39] VITALS: BMI 32.8
[2024-01-07] MEDS ORDERED: Enoxaparin 80 MG (0.8 mL) SYRINGE ONE ×2 (00:24→08:27)
[2024-01-07] MEDS: Enoxaparin 80 MG (0.8 mL) SYRINGE SC SCH (00:25)
[2024-01-07 05:32] LABS: #Eosinphils 0.4 thou/uL (0.0-0.7); #Monocytes 0.8 thou/uL (0.11-0.59); #Neutrophils 4.4 thou/uL (1.40-6.50); %Basophils 0.5 % (0.0-1.0); %Eosinophils 5.4 % (0.0-10.0); %Lymphocytes 26.3 % (21.0-51.0); %Monocytes 10.3 % (0.0-10.0); %Neutrophils 57.4 % (42.0-75.0); Hematocrit 38.9 % (36.0-47.0); Hemoglobin 12.6 g/dL (12.0-16.0); Mean Corpuscular HGB CONC 32.4 g/dL (32.0-36.0); Mean Corpuscular Volume 89.4 fl (78.0-98.0); Mean Platelet Volume 11.2 fL (7.4-10.4); Platelet Count 185 10x3/uL (130-400); RBC Distribution Width 13.4 % (11.5-14.5); Red Blood Cell (RBC) Count 4.35 mill/uL (4.20-5.40); White Blood Cell (WBC) Count 7.7 10x3/uL (4.8-10.8)
[2024-01-07 06:01] LABS: Anion Gap 11 mmol/L (10-20); BUN (Urea Nitrogen) 16 mg/dL (9.8-20.1); Calc. Creatinine Clearance 0 mL/min (70-130); Calcium 8.9 mg/dL (7.8-10.44); Carbon Dioxide 29 mmol/L (23-31); Chloride 103 mmol/L (98-107); Estimated GFR 85; Glucose 102 mg/dL (83-110); Potassium 3.9 mmol/L (3.5-5.1); Sodium 139 mmol/L (136-145)
[2024-01-07] MEDS ORDERED: Aspirin Chewable 81 MG TAB ONE (08:27)
[2024-01-07] MEDS: Aspirin Chewable 81 MG TAB PO SCH (08:43)
[2024-01-07] MEDS ORDERED: Ketorolac Tromethamine 30 MG (1 mL) VIAL IVP SCH (10:30)
[2024-01-07 11:06] VITALS: BP 138/66; TEMP 98
== END 2024-01-07 12:18 | disposition home or self-care (01) ==
LOC: ERS 13:48 → ERHOLD 19:52
PROVIDERS: ADMIT Student in an Organized Health Care Education/Training Program; ATTEND Internal Medicine
DX: R07.9 Chest pain, unspecified (principal); E11.9 Type 2 diabetes mellitus without complications; I10 Essential (primary) hypertension; K74.60 Unspecified cirrhosis of liver; Z90.49 Acquired absence of other specified parts of digestive tract; Z90.710 Acquired absence of both cervix and uterus; Z79.82 Long term (current) use of aspirin; Z79.899 Other long term (current) drug therapy; Z79.84 Long term (current) use of oral hypoglycemic drugs; Z88.1 Allergy status to other antibiotic agents; Z88.8 Allergy status to other drugs, medicaments and biological substances
CPT/HCPCS: 71045; 80048; 80053; 83690; 83880; 84484 ×2; 85025 ×2; 85379; 93005; 96372; 96374; 99285; G0378 ×2; 36415; J1650; J2270